=== PATIENT | female | born 1955 | race Caucasian/White ===

== ENCOUNTER 2025-09-16 17:49 | Inpatient (IN) | payer OTHER ==
[~2025-09-16] VITALS: Ht 157.5 cm; Wt 50.6 kg
[2025-09-16] MEDS ORDERED: CALC500T37 PO (18:05)
[2025-09-16] MEDS ORDERED: FERR325T27 PO (18:05)
[2025-09-16] MEDS ORDERED: FAMO20 PO (18:05)
[2025-09-16] MEDS ORDERED: MULT-1203 PO (18:05)
[2025-09-16] MEDS ORDERED: [UNRECOGNIZED DRUG - CODE] PO (18:05)
[2025-09-16] MEDS ORDERED: DOCU-385 PO (18:05)
[2025-09-16 18:35] LABS: PLATELET COUNT (AUTO) 485 K/uL (150-450); RED BLOOD CELL COUNT(AUTO) 3.89 MIL/uL (4.00-5.20); RED CELL DISTRIBUTION WIDTH 20.3 % (11.5-14.5); WHITE BLOOD COUNT (AUTO) 6.1 K/uL (4.5-11.0)
[2025-09-16 18:39] LABS: CALCIUM, TOTAL 9.4 mg/dL (8.8-10.5); CREATININE 0.96 mg/dL (0.60-1.30); GLOMERULAR FILTR. RATE CALC 58.0 mL/min (>60); GLUCOSE,RANDOM 116.0 mg/dL (70-110); SODIUM SERUM 139.0 mmol/L (136-145); UREA NITROGEN, BLOOD 28.0 mg/dL (7-18)
[2025-09-16 19:08] LABS: BAND NEUTROPHILS % (MANUAL) 2 % (0-5); EOSINOPHILS % (MANUAL) 4 % (1-6); LYMPHOCYTES % (MANUAL) 16 % (22-44); MONOCYTES % (MANUAL) 3 % (2-9); RBC MORPHOLOGY COMMENT ABNORMAL RBC MORPH; SEGMENTED NEUTROPHILS % 75 % (40-70)
[2025-09-16] MEDS ORDERED: ACETAMINOPHEN 325 MG TABLET PO PRN (20:45)
[2025-09-16] MEDS ORDERED: ONDANSETRON HCL 4 MG/2 ML VIAL IVP PRN (20:45)
[2025-09-16] MEDS: DOCUSATE SODIUM 100 MG CAPSULE PO SCH (21:00)
[2025-09-16] MEDS: PANTOPRAZOLE SODIUM 40 MG/VIAL IVP ONE (21:33)
[2025-09-16] MEDS: PANTOPRAZOLE SODIUM 80 MG in SODIUM CHLORIDE 0.9% 100 ML IV SCH (21:34)
[2025-09-16] MEDS: RINGERS SOLUTION,LACTATED 1,000 ML IV SCH (21:34)
[2025-09-16 22:10] VITALS: BP 128/76; PULSE 60; RESP 16; TEMP 99.7; O2SAT 100
[2025-09-17 00:41] VITALS: BP 120/75; PULSE 57; RESP 18; TEMP 99; O2SAT 98
[2025-09-17 04:15] VITALS: BP 124/72; PULSE 59; RESP 18; TEMP 98.2; O2SAT 99
[2025-09-17 06:36] LABS: PLATELET COUNT (AUTO) 432 K/uL (150-450); RED BLOOD CELL COUNT(AUTO) 3.56 MIL/uL (4.00-5.20); RED CELL DISTRIBUTION WIDTH 20.2 % (11.5-14.5); WHITE BLOOD COUNT (AUTO) 6.8 K/uL (4.5-11.0)
[2025-09-17 06:52] LABS: CALCIUM, TOTAL 8.7 mg/dL (8.8-10.5); CREATININE 0.70 mg/dL (0.60-1.30); GLOMERULAR FILTR. RATE CALC > 60 mL/min (>60); GLUCOSE,RANDOM 88 mg/dL (70-110); SODIUM SERUM 140 mmol/L (136-145); UREA NITROGEN, BLOOD 23 mg/dL (7-18)
[2025-09-17 06:53] LABS: RBC MORPHOLOGY COMMENT ABNORMAL RBC MORPH
[2025-09-17] MEDS ORDERED: SODIUM CHLORIDE 0.9% 1,000 ML ONE (07:59)
[2025-09-17 11:43] VITALS: BP 125/81; PULSE 63; RESP 17; TEMP 98; O2SAT 100
[2025-09-17 11:52] LABS: % IRON SATURATION 2.8 % (22-44); IRON, SERUM 12.0 mcg/dL (50-175)
[2025-09-17] MEDS ORDERED: PROPOFOL 1% 20 ML VIAL IVP ONE (12:00)
[2025-09-17] MEDS ORDERED: LIDOCAINE/PF 2% 5 ML VIAL ONE (12:00)
[2025-09-17 16:25] VITALS: BP 130/63; PULSE 60; RESP 18; TEMP 98; O2SAT 99
[2025-09-17 20:48] VITALS: BP 118/57; PULSE 67; RESP 18; TEMP 98.4; O2SAT 97
[2025-09-17 21:43] VITALS: BP 126/62; PULSE 58; RESP 18; TEMP 98.4; O2SAT 98
[2025-09-18 04:12] VITALS: BP 118/77; PULSE 61; RESP 17; TEMP 98.2; O2SAT 98
[2025-09-18 07:08] LABS: PLATELET COUNT (AUTO) 399 K/uL (150-450); RED BLOOD CELL COUNT(AUTO) 3.32 MIL/uL (4.00-5.20); RED CELL DISTRIBUTION WIDTH 20.1 % (11.5-14.5); WHITE BLOOD COUNT (AUTO) 7.7 K/uL (4.5-11.0)
[2025-09-18 08:34] VITALS: BP 117/73; PULSE 87; RESP 18; TEMP 98.2; O2SAT 100
[2025-09-18 08:42] LABS: RBC MORPHOLOGY COMMENT ABNORMAL RBC MORPH
[2025-09-18] MEDS: SOD FERRIC GLUC COMPLX/SUCROSE 125 MG in SODIUM CHLORIDE 0.9% 100 ML IV SCH (09:25)
[2025-09-18 20:04] VITALS: BP 105/48; PULSE 61; RESP 18; TEMP 98.8; O2SAT 98
[2025-09-18 20:29] VITALS: BP 133/74; PULSE 63; RESP 18; O2SAT 96
[2025-09-19 04:30] VITALS: BP 132/54; PULSE 54; RESP 18; TEMP 97.9; O2SAT 97
[2025-09-19 06:49] LABS: PLATELET COUNT (AUTO) 388 K/uL (150-450); RED BLOOD CELL COUNT(AUTO) 3.56 MIL/uL (4.00-5.20); RED CELL DISTRIBUTION WIDTH 20.3 % (11.5-14.5); WHITE BLOOD COUNT (AUTO) 7.9 K/uL (4.5-11.0)
[2025-09-19 08:26] VITALS: BP 125/58; PULSE 53; RESP 18; TEMP 97.9; O2SAT 97
[2025-09-19] MEDS ORDERED: [UNRECOGNIZED DRUG - CODE] PO (14:58)
[2025-09-19] MEDS ORDERED: ASCO500 PO (14:59)
[2025-09-19] MEDS ORDERED: FERR324T23 PO (15:07)
[2025-09-19] MEDS ORDERED: PANT-31 PO (15:09)
[2025-09-19] MEDS: FERROUS GLUCONATE 324 MG TABLET PO SCH (17:16)
[2025-09-19 19:45] VITALS: BP 115/61; PULSE 80; RESP 18; TEMP 99.5; O2SAT 100
[2025-09-19] MEDS: ASCORBIC ACID 500 MG TABLET PO SCH (20:20)
[2025-09-20 04:13] VITALS: BP 117/54; PULSE 54; RESP 18; TEMP 98.2; O2SAT 100
[2025-09-20 08:22] VITALS: BP 104/71; PULSE 70; RESP 20; TEMP 97.9; O2SAT 98
[2025-09-20] MEDS: PANTOPRAZOLE SODIUM 40 MG DR TABLET PO SCH (09:23)
== END 2025-09-20 15:30 | DRG 811 ==
LOC: EMS 17:49 → EDH 20:34 → 5N 22:13 → 6S 09-17 21:40
PROVIDERS: ADMIT Internal Medicine; ATTEND Internal Medicine
PROC: 0DJ08ZZ Inspection of Upper Intestinal Tract, Via Natural or Artificial Opening Endoscopic (ICD-10-PCS; principal; 2025-09-17 08:25)
DX: D62 Acute posthemorrhagic anemia (principal); K29.71 Gastritis, unspecified, with bleeding; E44.0 Moderate protein-calorie malnutrition; R79.89 Other specified abnormal findings of blood chemistry; K29.80 Duodenitis without bleeding; K30 Functional dyspepsia; K21.9 Gastro-esophageal reflux disease without esophagitis; K59.00 Constipation, unspecified; K27.9 Peptic ulcer, site unspecified, unspecified as acute or chronic, without hemorrhage or perforation; D75.839 Thrombocytosis, unspecified; F10.20 Alcohol dependence, uncomplicated; G89.29 Other chronic pain; Z68.21 Body mass index [BMI] 21.0-21.9, adult; Z88.5 Allergy status to narcotic agent; K44.9 Diaphragmatic hernia without obstruction or gangrene
CPT/HCPCS: 80048; 83540; 83550; 83735; 85007; 85025; 85027; 86850; 86900; 86901; 86923; 99285; J2470; J2704; J2916; J3490; J7030; J7050; J7120